=== PATIENT | female | born 1975 | race Caucasian/White ===

== ENCOUNTER 2020-03-08 10:01 | Outpatient (CLI) | payer BC, SELFPAY ==
--- NOTE | 2020-03-08 10:07 | MM_ITS ---
WS: [id number] BILATERAL DIGITAL SCREENING MAMMOGRAPHY WITH CAD CLINICAL INFORMATION: SCREENING HISTORY: Screening mammogram. No current complaints. COMPARISON: TECHNIQUE: Bilateral CC and MLO views. FINDINGS: The breasts are composed of heterogeneous fibroglandular density tissue, which can limit the detectio n of small underlying mass lesions. No suspicious mass, asymmetry, calcifications, or architectural d istortion. No evidence of malignancy. MM/[id number] IMPRESSION: BI-RADS: 1-Negative FOLLOW UP: 1 Year Follow-up Recommend return to annual screening mammography.
== END 2020-03-08 10:02 | disposition home or self-care (01) ==
LOC: RADSHAW 10:05
PROVIDERS: PCP Electrodiagnostic Medicine; Visit Provider Electrodiagnostic Medicine
DX: Z12.31 Encounter for screening mammogram for malignant neoplasm of breast (principal)
CPT/HCPCS: 77067

== ENCOUNTER 2021-03-10 07:53 | Outpatient (CLI) | payer OTHER, SELFPAY ==
--- NOTE | 2021-03-10 08:00 | MM_ITS ---
WS: [id number] Bilateral screening digital mammogram, 03/10/2021 Clinical Data: Z12.39 - Encounter for other screening for malignant neop... Comparison: 03/08/2020, 02/13/2019, 02/12/2018, 02/11/2017, 02/14/2016, 02/10/2015, 01/19/2015, 08/15/2011, 07/30/2011. Findings: The breast parenchymal pattern shows fibroglandular tissue No spiculated masses or clustered calcific ations are seen. There are no secondary signs of carcinoma. MM/[id number] Impression: 1. Negative bilateral mammogram unchanged. 2. Recommend annual screening mammograms. BIRADS: 1-Negative FOLLOW UP: 1 Year Follow-up The CAD policy checker was used.
== END 2021-03-10 07:54 | disposition home or self-care (01) ==
LOC: RADSHAW 07:55
PROVIDERS: PCP Electrodiagnostic Medicine; Visit Provider Nurse Practitioner Women's Health
DX: Z12.31 Encounter for screening mammogram for malignant neoplasm of breast (principal)
CPT/HCPCS: 77067

== ENCOUNTER 2022-03-19 07:52 | Outpatient (CLI) | payer OTHER, SELFPAY ==
--- NOTE | 2022-03-19 08:09 | MM_ITS ---
WS: [id number] BILATERAL SCREENING DIGITAL TOMOSYNTHESIS MAMMOGRAM WITH CAD HISTORY: SCREENING COMPARISON: 03/10/2021 and 03/08/2020 Bilateral CC and MLO views with tomosynthesis and synthetic mammography submitted. Computer aided det ection analyzed. Breast composition: There are scattered areas of fibroglandular density. No suspicious masses, microc alcifications or architectural distortion. MM/[id number] IMPRESSION: BI-RADS: 1-Negative FOLLOW UP: 1 Year Follow-up
== END 2022-03-19 07:53 | disposition home or self-care (01) ==
LOC: RAD 07:54
PROVIDERS: PCP Electrodiagnostic Medicine; Visit Provider Electrodiagnostic Medicine
DX: Z12.31 Encounter for screening mammogram for malignant neoplasm of breast (principal)
CPT/HCPCS: 77063; 77067

== ENCOUNTER → 2022-07-26 16:00 | Outpatient (BNVA) | payer OTHER, SELFPAY | PROVIDERS: PCP Electrodiagnostic Medicine; Visit Provider Nurse Practitioner Women's Health | DX: Z01.419 Encounter for gynecological examination (general) (routine) without abnormal findings (principal) | CPT/HCPCS: 87624 ==

== ENCOUNTER 2023-04-12 08:13 | Outpatient (CLI) | payer OTHER, SELFPAY ==
--- NOTE | 2023-04-12 08:18 | MM_ITS ---
WS: [id number] SCREENING DIGITAL BREAST TOMOSYNTHESIS MAMMOGRAM WITH CAD HISTORY: SCREENING COMPARISON: 03/19/2022, 03/10/2021 Bilateral CC and MLO with tomosynthesis and synthetic mammography submitted. Computer aided detection analyzed. Breast composition: The breasts are heterogeneously dense, which may obscure small masses. Focal asym metry measuring 8 mm seen on the LEFT CC posterior to the nipple at a middle depth. Not definitely se en on the lateral projection. RIGHT breast is negative. IMPRESSION: MM/[id number] BI-RADS: 0-Incomplete: Need additional imaging evaluation FOLLOW UP: Need Additional Imaging LEFT breast: Spot compression views (CC and MLO). True ML. Ultrasound to follow if abnormality persists.
== END 2023-04-12 08:14 | disposition home or self-care (01) ==
PROVIDERS: PCP Electrodiagnostic Medicine; Visit Provider Electrodiagnostic Medicine
DX: Z12.31 Encounter for screening mammogram for malignant neoplasm of breast (principal)
CPT/HCPCS: 77063; 77067

== ENCOUNTER 2023-05-28 10:15 | Outpatient (CLI) | payer OTHER, SELFPAY ==
--- NOTE | 2023-05-28 10:22 | MM_ITS ---
WS: [id number] ADDITIONAL VIEWS LEFT MAMMOGRAM with tomosynthesis. LEFT BREAST ULTRASOUND HISTORY: ABNORMAL MAMMO COMPARISON: 04/12/2023 and 03/19/2022 and 03/10/2021, 02/13/2019 LEFT MAMMOGRAM: Spot compression views and true ML with tomosynthesis and sympathetic mammography. Focal asymmetry in the central LEFT breast posterior to the nipple persists but nearly completely res olves with additional imaging. Persistent asymmetry measures approximately 6.5 mm at a middle depth. This may be along the 12:00 axis above the nipple line. This asymmetry was also present in 2019 but a ppears slightly more prominent. There is mild architectural distortion. LEFT BREAST ULTRASOUND 2-D and color Doppler imaging submitted. Along the 12:00 axis, 3 cm from the nipple is a complex cystic mass measuring 10 x 10 x 11 mm. There is no increased vascularity. The shin are slightly echogenic with mildly thickened septations. There is no shadowing. IMPRESSION: MM/[id number] BI-RADS: 4-Suspicious Finding-Biopsy Should Be Considered FOLLOW UP: Biopsy Recommended Ultrasound-guided biopsy recommended of the very vague hypoechoic mass at 12:00 , 3 cm from the nipple in the LEFT breast.
== END 2023-05-28 10:16 | disposition home or self-care (01) ==
LOC: RAD 10:15
PROVIDERS: PCP Electrodiagnostic Medicine; Visit Provider Electrodiagnostic Medicine
DX: R92.8 Other abnormal and inconclusive findings on diagnostic imaging of breast (principal); N60.12 Diffuse cystic mastopathy of left breast
CPT/HCPCS: 76642; 77061; G0279

== ENCOUNTER 2023-08-12 09:57 | Emergency (ER) | payer OTHER, SELFPAY ==
--- NOTE | 2023-08-12 09:59 | XR_ITS ---
WS: [id number] LEFT SHOULDER: 3 VIEW(S) TECHNIQUE: Internal and external rotation with Y view. HISTORY: trauma COMPARISON: None available. No fracture or dislocation or soft tissue abnormality. Glenohumeral and AC joints are unremarkable. IMPRESSION: Normal LEFT shoulder.
--- NOTE | 2023-08-12 10:57 | ED_ITS ---
HPI - Extremity Injury (Upper) General: Chief Complaint: Extremity Injury, Upper Stated Complaint: fall, left shoulder pain Time Seen by Provider: 08/12/23 10:57 History of Present Illness: 48-year-old female presents emergency de partment via POV with her . Patient states she was walking this morning when she slipped on the ice fell on a extended left arm. She states that since that time she feels like she has not been able to lift her arm and the only thing she feels like she can do is flex or extend her hand and wrist. She states her pain is a 6 out of 10 aching and throbbing type pain. She denies numbness or tingling to the extremity. She states she did not lose consciousness or hit her head. She denies any other complaints at this time. Review of Systems General: Reports: 10 or more systems reviewed and unremarkable except in HPI and below Musc: Reports: extremity pain, joint pain and joint stiffness [facility] ED PFSH: Medical History (Updated 08/12/23 @ 21:39 by Ricardo Nevarez MD) No pertinent past medical history neg hx: htn,dm,thyroid,dvt/pe PCP: Porfirio Herniated disc Surgical History History of laparoscopy (~1988) left ovarian cyst H/O tubal ligation (~2007) Laparoscopic tub[facility]. [facility] Family History Grandmother Heart disease Paternal grandmother Hypertension Paternal grandmother Diabetes Maternal grandmother Paternal grandmother Cancer MGM- breast late age onset PGM- breast late age onset Father Hypertension Diabetes Family/Other Hypertension Paternal uncle Denies family history of Colon cancer Ovarian cancer Family history of thyroid problem Uterine cancer Stroke Physical Exam Narrative: EXAM NARRATIVE: Constitutional: the patient appears well nourished and of normal development. Vital signs as documented. No acute distress at present. Alert and oriented-to person, place, time and situation. Head, eyes, ears, nose, mouth, throat: Normocephalic, atraumatic. Pupils-equal, round, reactive to light. No scleral icterus. Normal-appearing external ears. Normal appearing nasal turbinates, no drainage. No obvious oral lesions, posterior oropharynx without erythema or exudates. Neck: Supple, trachea is midline, no lymphadenopathy, no jugular venous distension, thyromegaly, or carotid bruits. Carotid upstrokes are brisk bilaterally. Lungs: clear to auscultation to all lung sim. Symmetrical rise and fall of chest, no obvious signs of increased work of breathing at present. Cardiac: Regular rate and rhythm, positive S1, S2. No murmurs, rubs or gallops that I can appreciate Abdomen: Soft, non-tender to palpation, normal active bowel sounds to all quadrants. No palpable masses, no organomegaly and abdominal bruits. Extremities: 2+ pulses in the upper extremities that are equal bilaterally, 2+ pulses in the lower extremities that are equal bilaterally. Non-edematous. Pain with adduction to the left humerus. The remainder she moves all extremities well, sensation to all extremities are noted. Capillary refills less than 3 seconds. Skin: Warm, dry, intact. Course ED course: Procedure note: Left shoulder sling I reviewed the radiographic examination and determined the need for stabilization via left upper extremity sling. A soft shoulder sling was utilized. The sling was ordered and placed by the nursing staff, under the direct supervision of myself (ER Physician. The patient's neurovascular status was evaluated and was intact before and after the application of the sling/splint. Capillary refill was less than 3 seconds before and after the application. The patient was provided a sling and the most appropriate anatomical and functional position at that time. Anticipatory guidance, return precautions and red flag precautions were provided to the patient and support person. The patient/support person was advised to contact the patient's primary care provider or Orthopedic provider to make a follow-up appointment for additional evaluation and treatment within the next 3-5 days. Vital Signs: Vital signs: Vital Signs Temperature 98.8 F 08/12/23 11:00 Pulse Rate 90 08/12/23 11:00 Blood Pressure 143/83 08/12/23 11:00 Pulse Oximetry 99 08/12/23 11:00 Oxygen Delivery Me thod Room Air 08/12/23 11:00 MDM - Extremity Injury (Upper) Medical Decision Making 48-year-old female presents with complaints of left shoulder pain secondary to a fall. I did review the radiographic exam and it does not appear there is anything acutely injured with the musculoskeletal system. I will provide her splints as well as written prescription for muscle relaxer and pain medication and have her follow-up with her primary care provider in 1 week. Medical Records I reviewed the patient's medical records. All radiology interpretation(s) finalized by discharge ED provider radiology interpretation(s): LEFT SHOULDER: 3 VIEW(S) TECHNIQUE: Internal and external rotation with Y view. HISTORY: trauma COMPARISON: None available. No fracture or dislocation or soft tissue abnormality. Glenohumeral and AC joints are unremarkable. IMPRESSION: Normal LEFT shoulder. Discharge Plan Discharge Patient Disposition: Home Clinical Impression: Acute shoulder pain, Accidental fall Condition: Stable Prescriptions: New cyclobenzaprine 10 mg tablet 10 mg PO Q8H Qty: 14 0RF hydrocodone-acetaminophen 5-325 mg tablet 1 tab PO Q8H PRN (Reason: pain) Qty: 14 0RF No Action evening primrose oil 500 mg capsule 500 mg PO DAILY PRN coenzyme Q10 [Co Q-10] 10 mg capsule 10 mg PO DAILY Algal [place]-3 DHA 200 mg capsule 1 mg PO DAILY Collagen 1500 Plus C 500 mg-800 mcg- 50 mg capsule 1 cap PO DAILY Discharge Orders: Discharge ED (Routine); Ordered 08/12/23 Ordered By: Ricardo Nevarez Referrals: Glenys Sauer MD [Physician] - Aubrey Monroy DO [Primary Care Provider] - Discharge Diet: Advance as tolerated Discharge Activity: Resume usual activity Patient Instructions: Opioid Safety, Pain Management Activity Restrictions/Additional Instructions: Activity Restrictions/Additional Instructions: Thank you for choosing [facility] for your healthcare needs today. Please realize that you were seen in the Emergency Department and that we are providing you with an emergency medical screening exam and this may not be a complete and all inclusive of all the testing and or medical work-up that you ma y need to determine your ailment or severity of your illness. It is very important that you follow-up as instructed with your Primary care provider or Specialist for additional evaluation and to discuss your medical treatment plan. You may return to the Emergency Department should you have concerns or if your condition changes or worsens in any way. Coding Level of Care Code ED Compressed Air Pile Driver Operator for Jose De Jesus Branham
[2023-08-12 11:00] VITALS: BP 143/83; PULSE 90; TEMP 37.1; O2SAT 99; BMI 33.5
== END 2023-08-12 11:15 | disposition home or self-care (01) ==
PROVIDERS: Emergency Provider Internal Medicine; PCP Electrodiagnostic Medicine
DX: M25.512 Pain in left shoulder (principal); W00.0XXA Fall on same level due to ice and snow, initial encounter
CPT/HCPCS: 73030; 99283

== ENCOUNTER 2024-07-29 10:16 | Emergency (ER) | payer OTHER, SELFPAY ==
--- NOTE | 2024-07-29 11:17 | CT_ITS ---
WS: [id number] CT ABDOMEN AND PELVIS WITH CONTRAST HISTORY: right sided abd pain TECHNIQUE: Imaging performed of the abdomen and pelvis with IV contrast. Single phase imaging of the abdomen. Coronal and sagittal reformats are submitted. All CT scans at [facility] use at [address] one of these dose optimization techniques: automated exposure control; mA and/or kV adjustment per patient size (includes targeted exams where dose is matched to clinical indication); or iterative re construction. IV CONTRAST: Omnipaque 350; 100 mL IV. Oral contrast: No DLP: 866.29 mGy.cm COMPARISON: None available. Lower thorax: Lung bases are clear. Heart is normal size. Small hiatal hernia. Liver/biliary system: Normal size with no intrahepatic dilatation. Gallbladder: Normal. No gallstones or wall thickening. No pericholecystic fluid. Pancreas: Normal size pancreas and pancreatic duct. No adjacent inflammation. Spleen: Normal size spleen. No mass or infarct. Adrenal glands: Normal. Right kidney: Mild delayed excretion from the RIGHT kidney along with mild perinephric stranding. Mil d dilatation of the central renal pelvis and calyces. 6 x 9 mm calcification at the UPJ junction. Ure ter distal to this proximal stone returns to normal caliber. Additional nonobstructing 5 mm calcifica tion lower pole RIGHT kidney. Left kidney: Normal size with no obstruction. Nonobstructing central calcifications. Aorta: Normal. Lymphadenopathy: None. Free fluid: None. GI tract: Unremarkable. Normal appendix. Abdominal wall: Unremarkable abdominal wall. No hernia. Pelvis: No free fluid or adenopathy within the pelvis. Bilateral ovarian cyst. LEFT ovarian cyst is t he largest measuring 3.9 x 4.6 cm. RIGHT ovarian septated cyst 3.1 x 2.5 cm. Bilateral tubal ligation clips. Bones: Mild degenerative disc disease at L5-S1. CT/CT abdomen pelvis w con* [id number] IMPRESSION: 1. Mild to moderate RIGHT hydronephrosis secondary to a 6 x 9 mm UP junction c alcification. 2. Delayed excretion from the RIGHT kidney. 3. Additional bilateral nonobstructing renal calculi. 4. Normal appendix. 5.
--- NOTE | 2024-07-29 11:17 | ED_ITS ---
HPI - Abdominal Pain 2 General: Chief Complaint: Abdominal Pain Stated Complaint: jhonny antonio Time Seen by Provider: 07/29/24 10:50 Source: patient Mode of arrival: ambulatory Limitations: no limitations History of Present Illness: 49-year-old female states she has been h aving right sided abdominal pain is been going on for roughly 3 to 4 hours states been a very sharp pain, the right mid abdomen. States the pain is currently a 9 out of 10 is worse with palpation denies any fever denies any vomiting or diarrhea. Associated Symptoms: Denies chills, diarrhea, dysuria, fever(s) and vomiting Related Data Home Medications Medication Instructions Recorded Confirmed evening primrose oil 500 mg capsule 500 mg PO DAILY 07/26/22 07/29/24 coenzyme Q10 10 mg capsule (Co 10 mg PO DAILY 08/02/23 07/29/24 Q-10) collagen,hydrolysate 500 mg-biotin 1 cap PO DAILY 08/02/23 07/29/24 800 mcg-ascorbic acid 50 mg capsule (Collagen 1500 Plus C) docosahexaenoic acid 200 mg 1 mg PO DAILY 08/02/23 07/29/24 capsule (Algal [place]-3 DHA) ascorbic acid (vitamin C) 500 mg 250 mg PO DAILY 07/29/24 07/29/24 tablet (Vitamin C) camphor-menthol 230 mg-70 mg 1 patch topical BID PRN Pain 07/29/24 07/29/24 topical patch ([place]) Previous Rx's Medication Instructions Recorded cyclobenzaprine 10 mg tablet 10 mg PO Q8H #14 tabs 08/12/23 diclofenac sodium 1 % topical gel 4 g topical QID #100 grams 09/06/23 hydrocodone 5 mg-acetaminophen 325 1 tab PO Q6H PRN pain #14 tabs 07/29/24 mg tablet ondansetron 4 mg disintegrating 4 mg PO Q6H PRN nausea and 07/29/24 tablet vomiting #14 tabs Allergies Allergy/AdvReac Type Severity Reaction Status Date / Time Penicillins Allergy Intermediate Swelling; Verified 09/06/23 08:05 laryngeal spams Review of Systems 2 Const: Denies: fever(s), chills, body aches or change in appetite ENMT: Denies: throat pain or dental pain Card: Denies: chest pain Resp: Denies: dyspnea GI: Reports: abdominal pain; Denies: vomiting or diarrhea : Denies: dysuria Musc: Denies: neck pain or back pain Skin/Breast: Denies: rash Neuro: Denies: headache(s) PFSH ED 2 PFSH: Medical History Biceps tendonitis on left No pertinent past medical history neg hx: htn,dm,thyroid,dvt/pe PCP: Porfirio Herniated disc Surgical History History of laparoscopy (~1988) left ovarian cyst H/O tubal ligation (~2007) Laparoscopic tubal ligation by Dr. [facility] Family History Grandmother Heart disease Paternal grandmother Hypertension Paternal grandmother Diabetes Maternal grandmother Paternal grandmother Cancer MGM- breast late age onset PGM- breast late age onset Father Hypertension Diabetes Family/Other Hypertension Paternal uncle Denies family history of Colon cancer Ovarian cancer Family history of thyroid problem Uterine cancer Stroke Physical Exam 2 Const: COMMON NORMALS: no acute distress, patient oriented x3 and healthy appearing HENMT: COMMON NORMALS: normocephalic and atraumatic HEAD & SCALP: n ormocephalic and atraumatic Eye: COMMON NORMALS: conjunctivae normal CONJUNCTIVA: Yes conjunctivae normal Neck/C-Spine: COMMON NORMALS: full ROM and supple Chest: COMMONS NORMALS: normal inspection of the chest Resp: COMMON NORMALS: normal respiratory effort Cardio: COMMON NORMALS: regular rate, regular rhythm and No murmurs present (Cardio) RATE: regular rate RHYTHM: regular rhythm GI: COMMON NORMALS: Normal to inspection, nondistended, normoactive bowel sounds present, Soft to palpation and no masses PALPATION: Yes Soft to palpation OTHER: right sided abd tenderness Extremity: COMMON NORMALS: normal to inspection and full ROM Neuro: COMMON NORMALS: patient oriented x3, moves all extremities and no focal motor deficits Psych: COMMON NORMALS: mental status grossly normal, Normal thought process present and cooperative THOUGHT PROCESS: Normal thought process present Skin: COMMON NORMALS: no rashes or lesions noted and no wounds GENERAL SKIN EXAM: no rashes or lesions noted Course 2 Vital Signs: Vital signs: Vital Signs Respiratory Rate 18 07/29/24 11:56 Pulse Oximetry 98 07/29/24 11:56 MDM - Abdominal Pain Medical Decision Making Patient presents here with right-sided abdominal pain and flank pain CT does show a kidney stones likely causing her pain no signs of urinary tract infection I spoke to patient she feels much improved her pain is resolved we will discharge her with a strainer she is to follow-up with urology and her PCP and return if worsening. Medical Records I reviewed the patient's medical records. Lab Data I reviewed the patient's lab results. 07/29/24 11:30 07/29/24 11:30 Labs/Radiology: Radiology Impressions Abdomen/Pelvis CT 07/29/24 11:17 IMPRESSION: 1. Mild to moderate RIGHT hydronephrosis secondary to a 6 x 9 mm UP junction calcification. 2. Delayed excretion from the RIGHT kidney. 3. Additional bilateral nonobstructing renal calculi. 4. Normal appendix. 5. Laboratory Results WBC 12.83 10^3/uL (3.29-11.43) H 07/29/24 11:30 RBC 5.20 10^6/uL (3.85-5.65) 07/29/24 11:30 Hgb 14.70 g/dL (11.27-16.99) 07/29/24 11:30 Hct 42.5 % (36-47) 07/29/24 11:30 MCV 81.7 fl (85-98) L 07/29/24 11:30 MCH 28.3 pg (27-33) 07/29/24 11:30 MCHC 34.6 g/dL (30-55) 07/29/24 11:30 RDW 12.2 % (12.1-15.1) 07/29/24 11:30 Plt Count 326 10^3/cmm (157-399) 07/29/24 11:30 MPV 9.9 fL (7.4-10.4) 07/29/24 11:30 Neut % (Auto) 85.1 % 07/29/24 11:30 Lymph % (Auto) 10.3 % 07/29/24 11:30 [place] % (Auto) 3.5 % 07/29/24 11:30 Eos % (Auto) 0.2 % 07/29/24 11:30 Baso % (Auto) 0.3 % 07/29/24 11:30 Neut # (Auto) 10.92 10^3/uL (1.8-7.7) H 07/29/24 11:30 Lymph # (Auto) 1.3 10^3/uL (0.8-4.8) 07/29/24 11:30 [place] # (Auto) 0.5 10^3/uL (0.2-0.9) 07/29/24 11:30 Eos # (Auto) 0.0 10^3/uL (0.0-0.8) 07/29/24 11:30 Baso # (Auto) 0.0 10^3/uL (0.0-0.1) 07/29/24 11:30 Nucleated RBC % (auto) 0 % 07/29/24 11:30 Nucleated RBCs # 0.0 /100WBC 07/29/24 11:30 Sodium 134 mmol/L (136-145) L 07/29/24 11:30 Potassium 3.8 mmol/L (3.5-5.1) 07/29/24 11:30 Chloride 98 mmol/L (98-107) 07/29/24 11:30 Carbon Dioxide 25 mmol/L (22-29) 07/29/24 11:30 Anion Gap 14.8 (5-19) 07/29/24 11:30 BUN 12 mg/dL (6-20) 07/29/24 11:30 Creatinine 0.7 mg/dL (0.5-0.9) 07/29/24 11:30 GFR Calculation 88.9 mL/min (90-130) L 07/29/24 11:30 Glucose 109 mg/dL (65-115) 07/29/24 11:30 Calculated Osmolality 278 mOsm/kg (285-295) L 07/29/24 11:30 Calcium 9.0 mg/dL (8.5-10.5) 07/29/24 11:30 Total Bilirubin 0.4 mg/dL (0.15-1.2) 07/29/24 11:30 AST 23 U/L (0-32) 07/29/24 11:30 ALT 39 U/L (0-33) H 07/29/24 11:30 Alkaline Phosphatase 76 U/L (35-105) 07/29/24 11:30 Total Protein 7.4 g/dL (6.6-8.7) 07/29/24 11:30 Albumin 4.4 g/dL (3.5-5.2) 07/29/24 11:30 Globulin 3.0 g/dL (1.3-4.6) 07/29/24 11:30 Lipase 49 U/L (13-60) 07/29/24 11:30 HCG, Qual Negative (Negative) 07/29/24 11:30 Urine Color Yellow (Yellow) 07/29/24 11:42 Urine Appearance Clear (CLEAR) 07/29/24 11:42 Urine pH 5.5 (5-7) 07/29/24 11:42 Ur Specific [place] 1.019 (1.005-1.030) 07/29/24 11:42 Urine Protein Trace (Negative) A 07/29/24 11:42 Urine Glucose (UA) Negative (Normal) 07/29/24 11:42 Urine Ketones Negative (Negative) 07/29/24 11:42 Urine Blood 2+ (Negative) A 07/29/24 11:42 Urine Nitrate Negative (Negative) 07/29/24 11:42 Urine Bilirubin Negative (Negative) 07/29/24 11:42 Urine Urobilinogen 1.0 mg/dL (Negative) 07/29/24 11:42 Ur Leukocyte Esterase Negative (Negative) 07/29/24 11:42 Urine RBC 51-100 /hpf (0-2) H 07/29/24 11:42 Urine WBC 0-5 /hpf (0-5) 07/29/24 11:42 Ur Squamous Epith Cells 0-5 /hpf (0-5) 07/29/24 11:42 Calcium Oxalate Crystal 15-25 /hpf H 07/29/24 11:42 Amorphous Sediment Not Reportable 07/29/24 11:42 Urine Bacteria None seen /hpf (NONE) 07/29/24 11:42 Hyaline Casts 0-4 /lpf H 07/29/24 11:42 All radiology interpretation(s) finalized by discharge Discharge Plan Discharge Patient Disposition: Home Clinical Impression: Kidney stone Condition: Stable Prescriptions: New hydrocodone-acetaminophen 5-325 mg tablet 1 tab PO Q6H PRN (Reason: pain) Qty: 14 0RF ondansetron 4 mg tablet,disintegrating 4 mg PO Q6H PRN (Reason: nausea and vomiting) Qty: 14 0RF No Action evening primrose oil 500 mg capsule 500 mg PO DAILY diclofenac sodium 1 % gel 4 g topical QID Qty: 100 1RF Rx Instructions: apply to single knee, ankle, foot; for foot includes sole/toes/top of foot, ANY PAINFUL JOINTS coenzyme Q10 [Co Q-10] 10 mg capsule 10 mg PO DAILY Algal [place]-3 DHA 200 mg capsule 1 mg PO DAILY Collagen 1500 Plus C 500 mg-800 mcg- 50 mg capsule 1 cap PO DAILY cyclobenzaprine 10 mg tablet 10 mg PO Q8H Qty: 14 0RF ascorbic acid (vitamin C) [Vitamin C] 500 mg Tablet 250 mg PO DAILY [place] 230-70 mg Adhesive Patch,Medicated 1 patch TOPICAL BID PRN (Reason: Pain) Discharge Orders: Discharge ED (Routine); Ordered 07/29/24 Ordered By: Reena Macedo Referrals: Aubrey Monroy, [Primary Care Provider] - Discharge Diet: Advance as tolerated Discharge Activity: Resume usual activity Patient Instructions: Kidney Stones (ED), Opioid Safety Coding Level of Care Code ED Regulatory Associate for Jose De Jesus Branham
[2024-07-29 11:43] VITALS: BMI 32.9
[2024-07-29 11:44] LABS: Basophils % 0.3 %; Eosinophils % 0.2 %; Hematocrit 42.5 % (36-47); Lymphocytes # 1.3 10^3/uL (0.8-4.8); Lymphocytes % 10.3 %; Mean Corpuscular HGB Conc 34.6 g/dL (30-55); Mean Corpuscular Hemoglobin 28.3 pg (27-33); Mean Corpuscular Volume 81.7 fl (85-98); Mean Platelet Volume 9.9 fL (7.4-10.4); Monocytes # 0.5 10^3/uL (0.2-0.9); Monocytes % 3.5 %; Neutrophils # 10.92 10^3/uL (1.8-7.7); Neutrophils % 85.1 %; Nucleated Red Blood Cells % 0 %; Platelet Count 326 10^3/cmm (157-399); Red Cell Distribution Width 12.2 % (12.1-15.1); White Blood Count 12.83 10^3/uL (3.29-11.43)
[2024-07-29 11:50] LABS: Bilirubin Urine Negative (Negative); Blood Urine 2+ (Negative); Glucose Urine UA Negative (Normal); Ketones Urine Negative (Negative); Leukocyte Esterase Urine Negative (Negative); Nitrate Urine Negative (Negative); Protein Urine Trace (Negative); Specific Gravity, Urine 1.019 (1.005-1.030); Urine Appearance Clear (CLEAR); Urine Color Yellow (Yellow); pH Urine 5.5 (5-7)
[2024-07-29 11:53] LABS: Add Urine Microscopic? YES; Bacteria Urine None Seen /hpf; Hyaline Casts Urine 0-4 /lpf; RBC Urine 51-100 /hpf (0-2); Squamous Epithelial Cell Urine 0-5 /hpf (0-5); WBC Urine 0-5 /hpf (0-5)
[2024-07-29] MEDS: iohexol 350 mg/mL 500 mL Btl (per mL) IV (11:55)
[2024-07-29 11:56] VITALS: RESP 18; O2SAT 98
[2024-07-29] MEDS: morphine 4 mg/mL SDV 1 mL IVP (11:56)
[2024-07-29] MEDS: ondansetron 2 mg/ML SDV 2 mL 4 MG IVP (11:57)
[2024-07-29 12:06] LABS: Add Urine Culture? Yes; Calcium Oxalate Crystals Urine 15-25 /hpf
[2024-07-29 12:13] LABS: Alanine Aminotransferase 39 U/L (0-33); Albumin Level 4.4 g/dL (3.5-5.2); Alkaline Phosphatase 76 U/L (35-105); Anion Gap 14.8 (5-19); Aspartate Amino Transferase 23 U/L (0-32); Blood Urea Nitrogen 12 mg/dL (6-20); Carbon Dioxide 25 mmol/L (22-29); Chloride 98 mmol/L (98-107); Creatinine Clr Calc Pharmacy 103.8332; Glomerular Filtration Rate 88.9 mL/min (90-130); Glucose 109 mg/dL (65-115); Lipase 49 U/L (13-60); Osmolality Calculated 278 mOsm/kg (285-295); Potassium 3.8 mmol/L (3.5-5.1); Sodium 134 mmol/L (136-145); Total Bilirubin 0.4 mg/dL (0.15-1.2); Total Protein 7.4 g/dL (6.6-8.7)
[2024-07-29 12:15] LABS: HCG, Serum Qual Negative (Negative)
[2024-07-29] MEDS: ketorolac 30 mg/mL INJ 15 MG IVP (12:42)
[2024-07-29 13:26] VITALS: BP 133/90; PULSE 92; RESP 16; O2SAT 98
--- NOTE | 2024-07-31 10:09 | DCPLANNER ---
faxed referral packet to [facility]
== END 2024-07-29 13:24 | disposition home or self-care (01) ==
PROVIDERS: Emergency Provider Emergency Medicine; PCP Electrodiagnostic Medicine
DX: N20.0 Calculus of kidney (principal)
CPT/HCPCS: 36415; 74177; 80053; 81001; 83690; 84703; 85025; 87086; 96374; 96375; 99285; J1885; J2270; J2405